=== PATIENT | female | born 1975 | race Caucasian/White ===

== ENCOUNTER 2018-02-07 18:55 | Emergency (ER) | payer BC ==
--- OUTSIDE RECORDS SUMMARY | 2018-02-07 18:57 | XMS REPORT ---
:1975 Author Organization eClinicalWorks Care Team Providers Name Role Phone Jaime Lewis Provider Role Unavailable Allergies, Adverse Reactions, Alerts Substance Reaction Event Type N.K.D.A. Info Not Available Non Drug Allergy Problems Problem Type Condition Code Onset Dates Condition Status Problem Nasal airway obstruction J34.89 Active Problem Chronic tonsillitis J35.01 Active Problem Sinusitis - Chronic J32.8 Active Assessment Hypertrophy of nasal turbinates J34.3 Active Problem Hypertrophy of nasal turbinates J34.3 Active Assessment Sinusitis - Chronic J32.8 Active Medications Medication Code Code Instructions Start End Date Status Dosage System Date Valium [facility] 65293040457 10 MG Orally Sep 16, Active 1 tablet Twice a day 2018 as needed Augmentin [facility] [address]-72 Active not defined Tylenol #3 ND 86224054652 300-30 MG Orally Sep 16, Active 1-2 every 6 hrs as 2018 tablets needed Ibuprofen ND 0 Active not defined Results No Known Results Summary Purpose eClinicalWorks Submission
--- OUTSIDE RECORDS SUMMARY | 2018-02-07 18:57 | XMS REPORT ---
[...] - Chronic J32.8 Active Medications Medication Code System Code Instructions Start End Date Status Dosage Date [facility] 14411329833 0.2 % Ophthalmic Oct 04, Active 1 drop in Twice a day 2018 eye Results No Known Results Summary Purpose eClinicalWorks Submission
--- OUTSIDE RECORDS SUMMARY | 2018-02-07 18:57 | XMS REPORT ---
:1975 Author Organization [employer] Care Team Providers Name Role Phone Jaime Lewis Provider Role Unavailable Allergies No Known Allergies Problems Problem Type Condition Code Onset Dates Condition Status Problem Nasal airway obstruction J34.89 Active Problem Chronic tonsillitis J35.01 Active Problem Sinusitis - Chronic J32.8 Active Problem Hypertrophy of nasal turbinates J34.3 Active Medications Medication Code System Code Instructions Start End Date Status Dosage Date Tylenol #3 [facility] 80459849629 300-30 MG Orally Sep 16, Active 1-2 tablets every 6 hrs as 2018 needed Augmentin [facility] 14872736022 875-125 MG b , Sep 18, Active 1 tablet Orally every 12 2018 2018 hrs Valium ND 12597119754 10 MG Orally Sep 16, Active 1 tablet as Twice a day 2018 needed Results No Known Results Summary Purpose eClinicalWorks Submission
--- OUTSIDE RECORDS SUMMARY | 2018-02-07 18:57 | XMS REPORT ---
:1975 Author Organization e[employer]Works Care Team Providers Name Role Phone Jaime Lewis Provider Role Unavailable Allergies, Adverse Reactions, Alerts Substance Reaction Event Type N.K.D.A. Info Not Available Non Drug Allergy Problems Problem Type Condition Code Onset Dates Condition Status Assessment Hypertrophy of nasal turbinates J34.3 Active Problem Nasal airway obstruction J34.89 Active Problem Chronic tonsillitis J35.01 Active Problem Sinusitis - Chronic J32.8 Active Assessment Nasal airway obstruction J34.89 Active Assessment Chronic tonsillitis J35.01 Active Problem Hypertrophy of nasal turbinates J34.3 Active Assessment Sinusitis - Chronic J32.8 Active Medications Medication Code System Code Instructions Start End Date Status Dosage Date Omnicef NDC 26530963297 300 MG Orally Sep 07, Sep 17, Active 1 capsule every 12 hrs 2017 2017 Ibuprofen NDC 0 Active not defined Results Name Result Date Reference Range Unit Abnormality Flag CT Sinus with [place] Summary Purpose [employer] Submission
--- OUTSIDE RECORDS SUMMARY | 2018-02-07 18:57 | XMS REPORT ---
[...] Instructions Start End Date Status Dosage Date [facility] 66751203316 0.2 % Ophthalmic Oct 04, Active 1 drop in Twice a day 2018 eye Results No Known Results Summary Purpose eClinicalWorks Submission
--- OUTSIDE RECORDS SUMMARY | 2018-02-07 18:57 | XMS REPORT ---
[...] Start End Date Status Dosage System Date Ibuprofen NDC 0 Active not defined Augmentin [facility] [address]-36 Active not defined Pataday [facility] 56241400355 0.2 % Ophthalmic Oct 04, Active 1 drop in Twice a day 2018 eye Results No Known Results Summary Purpose [employer] Submission
--- OUTSIDE RECORDS SUMMARY | 2018-02-07 18:57 | XMS REPORT ---
[...] Assessment Sinusitis - Chronic J32.8 Active Medications No Known Medications Results No Known Results Summary Purpose eClinicalWorks Submission
--- OUTSIDE RECORDS SUMMARY | 2018-02-07 18:57 | XMS REPORT ---
:1975 Author Organization eClinicalWorks Care Team Providers Name Role Phone Jaime Lewis Provider Role Unavailable Allergies No Known Allergies Problems Problem Type Condition Code Onset Dates Condition Status Problem Nasal airway obstruction J34.89 Active Problem Chronic tonsillitis J35.01 Active Problem Sinusitis - Chronic J32.8 Active Problem Hypertrophy of nasal turbinates J34.3 Active Medications No Known Medications Results No Known Results Summary Purpose [employer]ClinicalWorks Submission
--- NOTE | 2018-02-07 20:01 | ER ---
Nurse's Notes [facility] Name: Ximena River Age: 42 yrs Sex: Female : 1975 Arrival Date: 02/07/2018 Time: 18:58 Bed 12 Private MD: Diagnosis: Zoster [herpes zoster];Other herpes zoster eye disease Presentation: 02/07 19:18 Presenting complaint: Patient states: "I am in the process of going through Chemo and I jd3 started to have a rash on my head and right side of my neck. I spoke with my Chemo doctor and they said to come in and be evaluated to make sure I don't have shingles or any other infection that could cause a worse infection while on Chemo.". Transition of care: patient was not received from another setting of care. Onset of symptoms was February 04, 2018. Risk Assessment: Do you want to hurt yourself or someone else? Patient reports no desire to harm self or others. Initial Sepsis Screen: Does the patient meet any 2 criteria? No. Patient's initial sepsis screen is negative. Does the patient have a suspected source of infection? No. Patient's initial sepsis screen is negative. Care prior to arrival: None. 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 - Social history:: Smoking status: Patient uses tobacco products, denies chronic smoking, but will smoke occasionally. - Ebola Screening: : Patient negative for fever greater than or equal to 101.5 degrees Fahrenheit, and additional compatible Ebola Virus Disease symptoms. Screenin:28 Abuse screen: Denies threats or abuse. Nutritional screening: No deficits noted. jd3 Tuberculosis screening: No symptoms or risk factors identified. Fall Risk Ambulatory Aid- None/Bed Rest/Nurse Assist (0 pts). Gait- Normal/Bed Rest/Wheelchair (0 pts) Mental Status- Oriented to own ability (0 pts). Total Strong Fall Scale indicates No Risk (0-24 pts). Assessment: 19:26 General: Appears in no apparent distress. uncomfortable, Behavior is calm, cooperative, jd3 appropriate for age. Pain: Denies pain. Neuro: Level of Consciousness is awake, alert, obeys commands, Oriented to person, place, time, situation, Appropriate for age. Cardiovascular: Heart tones S1 S2 present Capillary refill < 3 seconds Patient's skin is warm and dry. Respiratory: Airway is patent Respiratory effort is even, unlabored, Respiratory pattern is regular, symmetrical, Breath sounds are clear bilaterally. GI: No signs and/or symptoms were reported involving the gastrointestinal system. : No signs and/or symptoms were reported regarding the genitourinary system. EENT: No signs and/or symptoms were reported regarding the EENT system. Derm: Skin is intact, Skin is dry, Skin is normal, Skin temperature is warm Rash noted that is red, raised, on right lateral aspect of neck and back of head pt reports swelling on sight of rash on right side of neck. Musculoskeletal: Circulation, motion, and sensation intact. Range of motion: intact in all extremities. 20:19 Reassessment: Dr Henry in to see pt and discuss discharge instructions. Pt also fc understand that she should be at Dr Núñez's office at 0930 in the morning. Vital Signs: 19:25 BP 110 / 71; Pulse 83; Resp 16 S; Temp 98.7(O); Pulse Ox 98% on R/A; Weight 60 kg (R); jd3 Height 5 ft. 7 in. (170.18 cm) (R); Pain 1/10; 19:25 Body Mass Index 20.72 (60.00 kg, 170.18 cm) jd3 ED Course: 18:58 Patient arrived in ED. mr 19:18 Dudley Bustos, MARITO is Primary Nurse. jd3 19:24 Triage completed. jd3 19:26 Arm band placed on. jd3 19:28 Patient has correct armband on for positive identification. Bed in low position. Call j light in reach. 19:33 Gage Henry MD is Attending Physician. tw4 19:59 Nicholas Núñez MD is Referral Physician. tw4 19:59 Josias Núñez MD is Referral Physician. tw4 20:20 No provider procedures requiring assistance completed. Patient did not have IV access fc during this emergency room visit. Administered Medications: No medications were administered Outcome: 20:00 Discharge ordered by . tw4 20:20 Discharged to home ambulatory. fc 20:20 Condition: good 20:20 Discharge instructions given to patient, Instructed on discharge instructions, follow up and referral plans. no drinking with medication, no driving heavy equipment, medication usage, Demonstrated understanding of instructions, follow-up care, medications, Prescriptions given X 4. 20:20 Patient left the ED. fc Signatures: Ayla Calzada mr CharlinejadMaty, RN RN fc Dudley Bustos RN RN jd3 Gage Henry MD MD tw4 Corrections: (The following items were deleted from the chart) 19:32 19:25 BP 110 / 71; Pulse 83bpm; Resp 16bpm; Spontaneous; Pulse Ox 98% RA; 60 kg jd3 Reported; Height 5 ft. 7 in. Reported; BMI: 20.7; Pain 1/10; jd3
--- NOTE | 2018-02-07 20:01 | EDPHYS ---
Physician Documentation [facility] Name: Ximena River Age: 42 yrs Sex: Female : 1975 Arrival Date: 02/07/2018 Time: 18:58 Bed 12 Private MD: ED Physician Gage Henry HPI: 02/07 19:55 This 42 yrs old Female presents to ER via Ambulatory with complaints of Skin tw4 Sore(s). 19:55 The patient's rash thought to be caused by an unknown cause. The rash is located on the tw4 forehead. The rash can be described as vesicular. Onset: The symptoms/episode began/occurred 4 day(s) ago. Associated signs and symptoms: Pertinent positives: None. Associated signs and symptoms: Pertinent positives: eye redness. Severity of symptoms: At their worst the symptoms were moderate in the emergency department the symptoms are unchanged. The patient has not experienced similar symptoms in the past. The patient has not recently seen a physician. 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 - Social history:: Smoking status: Patient uses tobacco products, denies chronic smoking, but will smoke occasionally. - Ebola Screening: : Patient negative for fever greater than or equal to 101.5 degrees Fahrenheit, and additional compatible Ebola Virus Disease symptoms. ROS: 19:55 Constitutional: Negative for fever, chills, and weight loss. tw4 19:55 Skin: Positive for rash, Negative for abrasions, abscesses, avulsion, diaphoresis, discoloration, ecchymosis, erythema, hematoma. Exam: 19:55 Constitutional: This is a well developed, well nourished patient who is awake, alert, tw4 and in no acute distress. 19:55 Head/face: Noted is rash, of the forehead. Vital Signs: 19:25 BP 110 / 71; Pulse 83; Resp 16 S; Temp 98.7(O); Pulse Ox 98% on R/A; Weight 60 kg (R); jd3 Height 5 ft. 7 in. (170.18 cm) (R); Pain 10; 19:25 Body Mass Index 20.72 (60.00 kg, 170.18 cm) jd3 MDM: 19:46 Patient medically screened. tw4 19:55 Differential diagnosis: impetigo, varicella, allergic reaction. Data reviewed: vital tw4 signs, nurses notes. Counseling: I had a detailed discussion with the patient and/or guardian regarding: the historical points, exam findings, and any diagnostic results supporting the discharge/admit diagnosis. Special discussion: I discussed with the patient/guardian in detail that at this point there is no indication for admission to the hospital. It is understood, however, that if the symptoms persist or worsen the patient needs to return immediately for re-evaluation. Administered Medications: No medications were administered Disposition: 02/07/18 20:00 Discharged to Home. Impression: Zoster [herpes zoster], Other herpes zoster eye disease. - Condition is Stable. - Discharge Instructions: Shingles. - Prescriptions for Bactroban 2 % Topical Ointment - Apply to affected area 1 application by TOPICAL route every 12 hours; 30 gram. Neurontin 300 mg Oral Capsule - take 1 capsule by ORAL route every 8 hours; 30 capsule. Tylenol- Codeine #3 300-30 mg Oral Tablet - take 2 tablet by ORAL route every 6 hours As needed; 30 tablet. Valtrex 1 g Oral Tablet - take 1 tablet by ORAL route every 8 hours for 7 days; 21 tablet. - Medication Reconciliation Form, Thank You Letter, Antibiotic Education, Prescription Opioid Use form. - Follow up: Nicholas Nñúez MD; When: 1 - 2 days; Reason: Re-evaluation by your physician. Follow up: Josias Núñez MD; When: 1 - 2 days; Reason: Recheck today's complaints, Re-evaluation by your physician. - Problem is new. - Symptoms are unchanged. Signatures: Maty Dowell RN RN Dudley Bustos RN RN jd3 Gage Henry MD MD tw4 Corrections: (The following items were deleted from the chart) 20:20 20:00 02/07/2018 20:00 Discharged to Home. Impression: Zoster [herpes zoster]; Other fc herpes zoster eye disease. Condition is Stable. Forms are Medication Reconciliation Form, Thank You Letter, Antibiotic Education, Prescription Opioid Use. Follow up: Nicholas Núñez; When: 1 - 2 days; Reason: Re-evaluation by your physician. Follow up: Josias Núñez; When: 1 - 2 days; Reason: Recheck today's complaints, Re-evaluation by your physician. Problem is new. Symptoms are unchanged. tw4
== END 2018-02-07 20:20 | disposition home or self-care (01) ==
LOC: ER 18:55
DX: B02.39 Other herpes zoster eye disease (principal); B02.9 Zoster without complications; Z72.0 Tobacco use; Z85.3 Personal history of malignant neoplasm of breast
CPT/HCPCS: 99282

== ENCOUNTER 2020-11-05 18:34 | Emergency (ER) | payer BC ==
--- OUTSIDE RECORDS SUMMARY | 2020-11-05 18:36 | XMS REPORT | Continuity of Care Document ---
:1975 Author Organization [facility] t Address [address] [place] [address] Care Team Providers Name Role Phone CHAYA SRIVASTAVA Primary Care Physician Unavailable Cheryl CRUM Attending Clinician Andres Gaytan MD Attending Clinician Anju DONIS P Attending Clinician Olena Srivastava MD Attending Clinician Ly PA Attending Clinician Olena SRIVASTAVA Attending Clinician Unavailable Triston DEVI, T Attending Clinician Unavailable Lab, Fam Pob I Attending Clinician Unavailable Pascual RN, L Attending Clinician Unavailable Payers Payer Name Policy Type Policy Number Effective Date Expiration Date S [place] BLUE CROSS BLUE [id number] 2017 MD Enrique RUIZBCBS PPO 00:00:00 POS OUT OF STATE [id number] -Presen tPPO Problems Condition Condition Condition Status Onset Resolution Last Treating Co mments Source Name Details Category Date Date Treatment Clinician Date Encounter Encounter Disease Active 2018- for for 9 Anderso preprocedu preprocedu 00:00: n ral ral 00 examinatio examinatio n n 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 1-30 Anderso lymphedema lymphedema 00:00: n syndrome syndrome 00 Stiffness Stiffness Disease Active 2017-08 MD of right of right 2-31 Stephen o shoulder shoulder 00:00: n 00 Shoulder Shoulder Disease Active 2017-08 girdle girdle 2-31 Anderso weakness weakness 00:00: n 00 At risk of At risk of Disease Active 2017-08 M D lymphedema lymphedema 2-31 An derso 00:00: n 00 Acquired Acquired Disease Active 2017-08 MD absence of absence of 2-12 An derso right right 00:00: n breast and breast and 00 nipple nipple 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, no n zoster zoster 00 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 00 ally from female female request breast breast for surgery [id number] Estrogen Estrogen Disease Active receptor receptor 4-30 Stephen o positive positive 00:00: n status status 00 (ER+) (ER+) 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 aditya 4-30 Anderso carcinoma carcinoma 00:00: n of breast of breast 00 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 Family History Family Member Diagnosis Comments Start Date Stop Date Source Maternal grandmother Gallbladder disease MD [place] Family member -Breast cancer MD Enrique palomo Family member Ovarian cancer MD Enrique palomo Social History Social Habit Start Date Stop Date Quantity Comments Source Sex Assigned At MD Mitchell on Tobacco use and 2019-11-09 2019-11-09 Never used MD Mitchell on exposure 00:00:00 00:00:00 Alcohol intake 2019-11-09 2019-11-09 Current MD Anderso n 00:00:00 00:00:00 non-drinker of alcohol (finding) Tobacco Comment 2017-12-06 2017-12-06 patient smokes MD Amy knight 00:00:00 00:00:00 around once a month when her friends visit from [place] History of tobacco 2017-08-13 Current smoker MD [place]ogue use 00:00:00 Smoking Status Start Date Stop Date Source Former smoker 2019-11-09 00:00:00 2019-11-09 00:00:00 Bharath son Medications Ordered Filled Start Stop Current Ordering Indication Dosage Frequency Signature Comments Components Source Medication Medication Date Date Medication? Clinician (SIG) Name Name multivitami Yes 1{capsu Take 1 M D n capsule 2-12 le} capsule by Enrique rso 13:58: mouth n 39 daily. tamoxifen Yes Infiltratin TAKE 1 MD (NOLVADEX) 2-08 g duct TABLET Bharath so 20 mg 00:00: carcinoma DAILY n tablet 00 of overlapping sites of right female breast tamoxifen 2020- No Infiltratin TAKE 1 MD (NOLVADEX) 3-17 02-08 g duct TABLET Enrique rso 20 mg 00:00: 00:00 carcinoma DAILY n tablet 00 :00 of overlapping sites of right female breast OLANZapine Yes Nausea 2.5mg Take 1 MD (ZyPREXA) 2-03 tablet Anderso 2.5 mg 00:00: (2.5 mg) n tablet 00 by mouth nightly as needed for anxiety or sleep (nausea). traMADol Yes Infiltratin 50mg Take 1 MD (ULTRAM) 50 9-25 g duct tablet (50 Anderso mg tablet 00:00: carcinoma mg) by n 00 of mouth overlapping every 6 sites of (six) right hours as female needed for breast moderate pain. Edin Jesus Yes Jaime 1 drop in Center 10-04 [facility] for ENT 00:00: 00 olopatadine 2020- No 1[drp] Apply 1 (Edin) 10-04- drop to Stephen o 0.1% 00:00: 00:00 eye as n ophthalmic 00 :00 needed. solution Vital Signs Vital Name Observation Time Observation Value Comments Source Systolic blood pressure 2020-09-20 13:53:39 71 mm[Hg] MD [place] Diastolic blood pressure 2020-09-20 13:53:39 42 mm[Hg] MD [place] Heart rate 2020-09-20 13:53:39 61 /min MD Bharath herman Body temperature 2020-09-20 13:53:39 36.89 Cece MD Capri alvarez Respiratory rate 2020-09-20 13:53:39 18 /min MD Capri alvarez Oxygen saturation in 2020-09-20 13:53:39 99 /min MD [place] Arterial blood by Pulse oximetry Body weight 2020-09-16 15:12:32 63.8 kg MD Bharath herman BMI 2020-09-16 15:12:32 22.08 kg/m2 MD Bharath herman Body height 2020-05-22 17:57:00 170 cm MD Bharath herman Procedures Procedure Date / Time Performed Performing Clinician Sour e CARCINOEMBRYONIC ANTIGEN 2020-09-16 13:42:00 Ekta Rene MD CANCER ANTIGEN 15-3 2020-09-16 13:42:00 Ekta Rene MD COMPLETE BLOOD COUNT W/ 2020-09-16 13:42:00 Ekta Rene MD DIFFERENTIAL COMPREHENSIVE METABOLIC PANEL 2020-09-16 13:42:00 Etka Rene MD VITAMIN D 25 HYDROXY LEVEL 2020-09-16 13:42:00 Ekta Rene Results CBC 2020-09-16 13:42:00 Ekta Rene MD MANUAL DIFFERENTIAL 2020-09-16 13:42:00 Ekta Rene MD GLUCOSE LEVEL 2020-09-16 13:42:00 Ekta Rene MD BLOOD UREA NITROGEN 2020-09-16 13:42:00 Ekta Rene MD ELECTROLYTE PANEL 2020-09-16 13:42:00 Ekta Rene MD SERUM CREATININE 2020-09-16 13:42:00 Ekta Rene MD .GLOMERULAR FILTRATION RATE 2020-09-16 13:42:00 Ekta Rene MD CALCIUM LEVEL TOTAL 2020-09-16 13:42:00 Ekta Rene MD ALBUMIN LEVEL 2020-09-16 13:42:00 Ekta Rene MD ALKALINE PHOSPHATASE 2020-09-16 13:42:00 Ekta Rene MD Enrique rson ALANINE AMINOTRANSFERASE 2020-09-16 13:42:00 Ekta Rene MD ASPARTATE AMINOTRANSFERASE 2020-09-16 13:42:00 Ekta Rene TOTAL PROTEIN 2020-09-16 13:42:00 Ekta Rene MD FRACTIONATED BILIRUBIN 2020-09-16 13:42:00 Ekta Rene MD DEXA BONE MINERAL DENSITY BOTH 2020-05-22 18:25:39 Catia Srivastava MD HIPS AND SPINE COMPLETE BLOOD COUNT W/ 2020-05-22 17:12:00 Chaya Srivastava MD DIFFERENTIAL CANCER ANTIGEN 15-3 2020-05-22 17:12:00 Chaya Srivastava MD And erson CARCINOEMBRYONIC ANTIGEN 2020-05-22 17:12:00 Chaya Srivastava VITAMIN D 25 HYDROXY LEVEL 2020-05-22 17:12:00 Chaya Srivastava MD GLUCOSE LEVEL 2020-05-22 17:12:00 Chaya Srivastava MD Andaramo n BLOOD UREA NITROGEN 2020-05-22 17:12:00 Chaya Srivastava MD And erson ELECTROLYTE PANEL 2020-05-22 17:12:00 Chaya Srivastava MD Bharath son SERUM CREATININE 2020-05-22 17:12:00 Chaya Srivastava MD Stephen on .GLOMERULAR FILTRATION RATE 2020-05-22 17:12:00 Chaya Srivastava MD CALCIUM LEVEL TOTAL 2020-05-22 17:12:00 Chaya Srivastava MD And erson ALBUMIN LEVEL 2020-05-22 17:12:00 Chaya Srivastava MD Andkami n ALKALINE PHOSPHATASE 2020-05-22 17:12:00 Chaya Srivastava MD ALANINE AMINOTRANSFERASE 2020-05-22 17:12:00 Chaya Sriavstava ASPARTATE AMINOTRANSFERASE 2020-05-22 17:12:00 Chaya Srivastava MD TOTAL PROTEIN 2020-05-22 17:12:00 Chaya Srivastava MD FRACTIONATED BILIRUBIN 2020-05-22 17:12:00 Chaya Srivastava MD Results CBC 2020-05-22 17:12:00 Chaya Srivastava MD MANUAL DIFFERENTIAL 2020-05-22 17:12:00 Chaya Srivastava MD And erson COMPREHENSIVE METABOLIC PANEL 2020-05-22 17:12:00 Chaya Srivastava MD COMPLETE BLOOD COUNT W/ 2020-02-13 13:36:00 Cahya Srivastava MD DIFFERENTIAL CANCER ANTIGEN 15-3 2020-02-13 13:36:00 Chaya Srivastava MD And javy CARCINOEMBRYONIC ANTIGEN 2020-02-13 13:36:00 Chaya Srivastava DIHYDROXY VITAMIN D 1 25 LEVEL 2020-02-13 13:36:00 Catia Srivastava MD ESTRADIOL LEVEL 2020-02-13 13:36:00 Chaya Srivastava MD LUTEINIZING HORMONE 2020-02-13 13:36:00 Chaya Srivastava MD And erson FOLLICLE STIMULATING HORMONE 2020-02-13 13:36:00 Chaya Srivastava MD LEVEL Results CBC 2020-02-13 13:36:00 Chaya Srivastava MD MANUAL DIFFERENTIAL 2020-02-13 13:36:00 Chaya Srivastava MD And erskamron CT ABDOMEN W CONTRAST 2019-11-09 16:03:00 Ekta Rene MD And erson POC CREATININE 2019-11-09 14:06:00 Provider, Unknown MD Angie roach Encounters Start End Encounter Admission Attending Care Care Encounter Source Date/Time Date/Time Type Type Clinicians Facility Department ID 2020-04-23 2020-04-23 Outpatient BURAK SRIVASTAVA SHAGGY MDA [id number] 00:00:00 00:00:00 CHAYA roach 2020-04-19 2020-04-19 Outpatient BURAK SRIVASTAVA SHAGGY MDA [id number] 00:00:00 00:00:00 CHAYA roach 2020-04-19 2020-04-19 Outpatient BURAK SRIVASTAVA MDA MDA [id number] 00:00:00 00:00:00 CHAYA roach 2020-04-19 2020-04-19 Outpatient BURAK SRIVASTAVA MDA MDA [id number] 00:00:00 00:00:00 CHAYA roach 2020-04-11 2020-04-11 JOSE GUADALUPE Dominguez [id number] 00:00:00 00:00:00 (Out) Janneth Potts LAM [id number] [facility] [id number] 2020-04-10 2020-04-10 [facility] [id number] 14:02:24 14:22:24 Only Fam Pob I Health [id number] [place] [id number] Professio [id number] nal [address] 2020-02-13 2020-02-13 Outpatient BURAK SRIVASTAVA MDA MDA [id number] 08:35:47 08:45:17 CHAYA roach 2020-02-13 2020-02-13 Outpatient BURAK SRIVASTAVA MDA MDA [id number] 00:00:00 00:00:00 CHAYA roach 2017-11-11 2017-11-11 Outpatient [facility] [place] [id number] Center 10:10:00 10:10:00 [facility] 2017-10-14 2017-10-14 Outpatient [facility] [id number] Center 10:40:00 10:40:00 [facility] 2017-10-04 2017-10-04 Outpatient [facility] [id number] Center 10:40:00 10:40:00 [facility] 2017-09-27 2017-09-27 Outpatient [facility] [id number] Center 10:10:00 10:10:00 [facility] 2017-09-24 2017-09-24 Outpatient [facility] [id number] Center 10:00:00 10:00:00 [facility] 2017-09-16 2017-09-16 Outpatient [facility] [id number] Center 09:26:00 09:26:00 [facility] 2017-09-07 2017-09-07 Outpatient [facility] [id number] [place] 11:06:00 11:06:00 [facility] 2017-09-07 2017-09-07 Outpatient [facility] [place] [id number] [place] 09:40:00 09:40:00 [facility] Results Test Description Test Time Test Comments Results Result Comments Source Vitamin D 25OH 2020-09-16 14:48:13 Test Item Value Reference Range Interpretation Comme nts Vitamin D 25 OH (test code = 38 ng/mL 30-100 Reference Range: Deficiency: 8018) <10 ng/mLInsuff iciency: 10-29 ng/mLSufficienc y: 30-100 ng/mLPotential toxicity: >100 ng/mL MD [id number] 14:28:05 Test Item Value Reference Range Interpretation Comments CEA (test code = 5203) 4.6 ng/mL See_Comment H Refer ence Ranges:Smoker 0.0 - 5.5 Testi ng Performed at [facility] Lab Telegraphic Typewriter Operator Chief [facility], [address], [address], [place], [place] [address] [Automated mess age] The system Grid Net generated this result transmit shawna reference range : <=3.8. The refe rence range was not u sed to interpret th is result as normal/abnormal . Lab Interpretation (test Abnormal code = 71501-3) MD Jackson [id number] 14:28:02 Test Item Value Reference Range Interpretation Comments CA 15-3 (test code 4.9 U/mL See_Comment Results g reater than = 5170) 2400.0 U/mL may not be reliable due to matrix effect with ext ended dilution as it exceeds the brake operator's recommended limit. Caution should be exercised when interpreting clemons ch values and done in con junction with clinical context.Testing Performed at [facility] Lab Ambu [facility] Bld[facility], [address], [address], [place] [address] [Automat ed message] The system Grid Net generated this result tra nsmitted reference range : <=25.0. The reference r anne was not used to int erpret this result as justine l/abnormal. MD HogueFractionated [id number] 14:26:45 Test Item Value Reference Range Interpretation Comments Bili Total (test <0.3 See_Comment Direct and indirect code = 5096) bilirubin will not be reported when T otal bilirubin resul t is <0.3 mg/dLIndocyanin e Green (ICG) may cause false ly elevated bilirubin resul ts. Total and direct bilirubi n must not be measured from s amples containing indo cyanine green. False el evation of total bilirubin can be seen in patients wit h IgG concentrations above 28 g/L.Testing Per formed at [facility] Lab Telegraphic Typewriter Operator Chief [facility], [address], [place] [address] [Automated mess age] The system which ge nerated this result transmit shawna reference range: <=1.2 mg /dL. The reference range was not used to interpret th is result as normal/abnormal . MD HogueGlomerular Filtration [id number] 14:26:44 Test Item Value Reference Range Interpretation Comments eGFR-AA (test code 92 See_Comment Normal eG FR >= 60 mL/min/1.73 = 8062) m2 Note: The eG FR is calculated usin g the CKD-EPI equation. The e GFR declines with age. eGFR <60 mL/min/1.73 m2 is considered as "decreased". This equation should only be used for patients 18 and older. According to th e National Kidney Foundati on's Kidney Disease Outcome Quality Initiative (KDO QI) classification and 2012 Kidney Disease Improving Global Outcomes (KDIGO) Clinical Practi ce Guideline, the stage of CK D should be categorized bas ed on estimated GFR. Stage Description GFR mL/min/1.73 m21 Normal or high GFR >=902 Mildly decrease d GFR 60-893a M ildly to moderately decr eased GFR 45-593b Moderat james to severely decrea sed GFR 30-444 Severely decreased GFR 15-295 Kid arin failure <15 Testing Performed at [facility] Lab Ambulat ory Care [facility], [address], [place], [place] [address] [Automated message] The sy stem which generated this result transmitted ref erence range: >=60 mL/min/1.7 3 sq. m. The reference range was not used to interpret th is result as normal/abnormal . eGFR-WENDY (test code 80 See_Comment Normal e GFR >= 60 mL/min/1.73 = 8063) m2 Note: The eG FR is calculated usin g the CKD-EPI equation. The e GFR declines with age. eGFR <60 mL/min/1.73 m2 is considered as "decreased". This equation should only be used for patients 18 and older. According to th e National Kidney Foundati on's Kidney Disease Outcome Quality Initiative (KDO QI) classification and 2012 Kidney Disease Improving Global Outcomes (KDIGO) Clinical Practi ce Guideline, the stage of CK D should be categorized bas ed on estimated GFR. Stage Description GFR mL/min/1.73 m21 Normal or high GFR >=902 Mildly decrease d GFR 60-893a M ildly to moderately decr eased GFR 45-593b Moderat james to severely decrea sed GFR 30-444 Severely decreased GFR 15-295 Kid arin failure <15 Testing Performed at [facility] Lab Ambulat ory Care [facility], [address], [place], [place] [address] [Automated message] The sy stem which generated this result transmitted ref erence range: >=60 mL/min/1.7 3 sq. m. The reference range was not used to interpret th is result as normal/abnormal . MD HogueTotal [id number] 14:26:43 Test Item Value Reference Range Interpretation Comments Total Protein (test 7.0 g/dL 6.4-8.3 Testing Performed at [facility] code = 7649) Lab Telegraphic Typewriter Operator Chief [facility], [address], [place] [address] MD HogueCalcium [id number] 14:26:42 Test Item Value Reference Range Interpretation Comments Calcium Lvl (test 9.0 mg/dL 8.4-10.2 Testing Pe rformed at code = 5258) [facility] Lab Ambulat ory Care [facility], [address], [place], [place] [address] MD HogueAlkaline [id number] 14:26:41 Test Item Value Reference Range Interpretation Comments Alk Phos (test code = 30 U/L 35-104 L Testin g Performed at 4768) [facility] Lab Ambulat ory Care [facility], [address], [place] [address] Lab Interpretation (test Abnormal code = 42873-5) MD HogueAlbumin [id number] 14:26:40 Test Item Value Reference Range Interpretation Comments Albumin Lvl (test code 4.3 See_Comment Testi ng Performed at [facility] = 4763) Lab Telegraphic Typewriter Operator Chief [facility], [address], [place] [address] [Automated mess age] The system which ge nerated this result tra nsmitted reference range : 3.5 - 5.2 gm/dL. The refe rence range was not used to interpret this result as normal/abnormal . MD HogueAspartate [id number] 14:26:39 Test Item Value Reference Range Interpretation Comments AST (test code = 18 U/L See_Comment Testing Per formed at [facility] 4731) Lab Telegraphic Typewriter Operator Chief [facility], [address], [place] [address] [Automated mess age] The system which ge nerated this result transmit shawna reference range : <=32. The reference range was not used to interpr et this result as justine l/abnormal. MD [id number] 14:26:38 Test Item Value Reference Range Interpretation Comments ALT (test code = 13 U/L See_Comment Testing Per formed at [facility] 4705) Lab Telegraphic Typewriter Operator Chief [facility], [address], [place] [address] [Automated mess age] The system which ge nerated this result transmit shawna reference range : <=33. The reference range was not used to interpr et this result as justine l/abnormal. MD HogueElectrolyte [id number] 14:26:37 Test Item Value Reference Range Interpretation Comments Sodium Lvl (test code = 143 See_Comment Test ing Performed at 7326) [facility] Lab Ambulat ory Care [facility], [address], [place] [address] [Automate d message] The sy stem which generated this result transmit shawna reference range : 136 - 145 mEq/L. Th e reference range was not used to int erpret this result as normal/abnormal . Potassium Lvl (test code 3.9 See_Comment Leisa varshag Performed at = 6859) [facility] Lab Ambulat [facility], [address], [place] [address] [Automate d message] The sy stem which generated this result transmit shawna reference range : 3.5 - 5.1 mEq/L. Th e reference range was not used to int erpret this result as normal/abnormal . Chloride (test code = 109 See_Comment H Testin g Performed at 5279) [facility], [address], [place] [address] [Automate d message] The sy stem which generated this result transmit shawna reference range : 98 - 107 mEq/L. The reference range was not used to int erpret this result as normal/abnormal . CO2 (test code = 5227) 27 See_Comment Testi ng Performed at [facility] Lab [facility], [address] [facility] [facility], [place] [address] [Automate d message] The sy stem which generated this result transmit shawna reference range : 22 - 29 mEq/L. The reference range was not used to int erpret this result as normal/abnormal . Anion Gap (test code = 7 See_Comment Testi ng Performed at 9325) [facility] Lab Ambulat [facility], [address], [place] [address] [Automate d message] The sy stem which generated this result transmit shawna reference range : 4 - 14 mEq/L. The reference range was not used to int erpret this result as normal/abnormal . Lab Interpretation (test Abnormal code = 12598-2) MD Hogue.Serum [id number] 14:26:36 Test Item Value Reference Range Interpretation Comments Creatinine (test code 0.88 mg/dL 0.51-0.95 Testin g Performed at = 5366) [facility] Lab Ambulat [facility], [address], [place] [address] MD [id number] 14:26:35 Test Item Value Reference Range Interpretation Comments BUN (test code = 18 mg/dL 6-23 Testing Per formed at [facility] 5055) Lab Telegraphic Typewriter Operator Chief [facility], [address], [address], [place] [address] MD HogueGlucose [id number] 14:26:34 Test Item Value Reference Range Interpretation Comments Glucose Level (test code 100 mg/dL 70-99 H Eff ective 03/04/16, = 5699) the glucose reference inter vals have been updat ed based on Americ an Diabetes Associ ation guidelines (Standards of Medical Care in Diabetes 2016. Diabetes Care 2 016; 39: S13-S22).Fa sting blood glucose:Normal: 70 99 mg/dLImpaire d fasting glucose (increased risk for diabetes or pre-diabetes): 100 125 mg/dLDiabet es mellitus: >/=1 26 mg/dL Random bl ood glucose:Normal: 70 199 mg/dLNote: Random glucose >100 mg/dL is associ ated with increased risk for diabetes Te sting Performed at [facility] Lab Telegraphic Typewriter Operator Chief [facility], [address] [place] [address] Blvd, [address], [facility] [place] [address] Lab Interpretation (test Abnormal code = 80545-3) MD [id number] 13:53:29 Test Item Value Reference Range Interpretation Comments Neutrophil % (test code 53.5 % 42-66 As p art of = 6491) Differential performed at [facility] Lab Telegraphic Typewriter Operator Chief Bldg, [address] [place], [place] [address], [address], [facility] [place] [address] Lymphocyte % (test code 34.9 % 24-44 = 6194) Monocyte % (test code = 8.1 % 2-7 H 6422) Eosinophil % (test code 2.6 % 1-4 = 5520) Basophil % (test code = 0.7 % 0-1 5068) IGRE % (test code = 0.2 % 0-0.4 IGRE % c ount includes 5958) Metamyelocytes, Myelocytes, and Promyelocytes. As part of Differe ntial performed at [facility] Telegraphic Typewriter Operator Chief Bldg, [address], [address], [place] [address] Neutrophil Abs (test 2.46 K/uL 1.7-7.3 code = 6492) Lymphocyte Abs (test 1.60 K/uL 1-4.8 code = 6195) Monocyte Abs (test code 0.37 K/uL 0.08-0.7 = 6423) Eosinophil Abs (test 0.12 K/uL 0.04-0.4 code = 5521) Basophil Abs (test code 0.03 K/uL 0-0.1 = 5069) IG Abs (test code = 0.01 K/uL 0-0.04 5954) Lab Interpretation Abnormal (test code = 60571-5) MD Hogue.[id number] 13:53:25 Test Item Value Reference Range Interpretation Comments WBC (test code = 4.6 K/uL 4-11 8034) RBC (test code = 4.23 See_Comment [Automated message] The 6932) system which ge nerated this result tra nsmitted reference range : 4.00 - 5.50 M/uL. The reference range was not u sed to interpret this result as normal/abnormal . Hgb (test code = 12.6 See_Comment As part of CBC or as an 5898) individual maren loaiza testing perform ed at [facility] Lab Telegraphic Typewriter Operator Chief [facility], [address] [address], [address], [place] [address] [Automated mess age] The system which ge nerated this result tra nsmitted reference range : 12.0 - 16.0 gm/dL. The reference range was not u sed to interpret this result as normal/abnormal . Hct (test code = 38.8 % 37-47 As part of CBC or as an 5860) individual maren loaiza testing perform ed at [facility] [employer] [facility], [address], [address], [place] [address] MCV (test code = 92 fL 82-98 6222) MCH (test code = 29.8 pg 27-31 6220) MCHC (test code = 32.5 See_Comment [Automate d message] The 6221) system which ge nerated this result tra nsmitted reference range : 31.0 - 36.0 gm/dL. The reference range was not u sed to interpret this result as normal/abnormal . RDW-SD (test code = 41.2 fL 35.1-46.3 6972) RDW-CV (test code = 12.2 % 12-15.5 6971) Platelet count (test 188 K/uL 140-440 As part of CBC or as an code = 6832) individual maren loaiza testing perform ed at [facility], [address], [address], [place] [address] MPV (test code = 9.5 fL 4-10.4 6282) INRBC (test code = 0.0 % See_Comment The INRBC (instrument 5974) NRBC) value ref lects the enumerationof n ucleated red blood cells contained in a 200uL samp leof whole blood analyzed by the instrument. Thi s value maydiffer from the NRBC value reported in a manual differen tial,which is based on a 1 00 cell differential. A s part of CBC testing per formed at [facility], [facility] [address] [Automat ed message] The sy stem which generated this result transmitted ref erence range: <=0.0. T he reference range was not used to interpr et this result as normal/abnormal . MD HogueNM Bone Mineral Density Both Hips and [id number] 19:00:491. Normal bone mineral density.2. Statistically significant interval increase in bone mineral density at the left total hip, left femoral neck, and right femoral neck. I personally reviewed these image(s) along with the resident's/fellow's interpretations, certify that if a procedure was performed Iwas physically present, and agree with the final report.Interface, Radiology Results In - 05/22/2020 2:02 PM CDTExamination: Bone Mineral Density (DXA), 05/22/2020Clinical History: 44-year-old woman with breast cancer.Indication: Assessment of bone mineral density.Comparison: Bone mineral density exam 01/31/2019Technique: Bone mineral density was obtained using Hologic dual-energy X-ray absorptiometry.Findings: The findings are provided in the below table(s).FULL RESULT:Bone Density: Region Exam Date BMD T- Z- g/cm2 Score Score AP Spine (L1-L4) 05/22/2020 0.998 -0.4 0.0 Femoral Neck (Left) 05/22/2020 0.823 -0.2 0.2 Total Hip (Left) 05/22/2020 0.868 -0.6 -0.3 Femoral Neck (Right) 05/22/2020 0.892 0.4 0.8 Total Hip (Right) 05/22/2020 0.902 -0.3 0.0 ----- For postmenopausal women and men age 50 and over, the World Health Organization criteria for BMD interpretation classify patients as: Normal (T-score at or above -1.0), Osteopenia (T-score between -1.0 and -2.5), or Osteoporosis (T-score at or below -2.5). Previous Exams: --Region Exam Age BMD T-score BMD Change vs Date g/cm2 Baseline Previous -AP Spine (L1-L4) 05/22/2020 44 0.998 -0.4 0.2% 0.2% 01/31/2019 43 0.995 -0.5 Total Hip(Left) 05/22/2020 44 0.868 -0.6 4.6%* 4.6%* 01/31/2019 43 0.829 -0.9 Femoral Neck(Left) 05/22/2020 44 0.823 -0.2 6.0%* 6.0%* 01/31/2019 43 0.776 -0.7 Total Hip(Right) 05/22/2020 44 0.902 - 0.3 3.5% 3.5% 01/31/2019 43 0.872 -0.6 Femoral Neck(Right) 05/22/2020 44 0.892 0.4 12.6%* 12.6%* 01/31/2019 43 0.793 -0.5 *Denotes significance at 95% confidence level, site specific LSC for AP Spine = 0.029 g/cm2, site specific LSC for Total Hip = 0.033 g/cm2, site specific LSC for Femoral Neck = 0.045 g/cm2, LSC for 1/3 Forearm = 0.023g/cm2 IMPRESSION:1. Normal bone mineral density.2. Statistically significant interval increase in b one mineral density at the left total hip, left femoral neck, and right femoral neck.I personally reviewed these image(s) along with the resident's/fellow's interpretations, certify that if a procedurewas performed I was physically present, and agree with the final report.MD HogueCT Abdomen with Contrast 2019-11-09 16:27:[address] correlate for abdominal pain is identified. 2. No CT evidence of metastatic disease in the abdomen. Interface, Radiology Results In - 11/09/2019 11:29 AM CDTFULL RESULT:Examination: CT ABDOMEN W CONTRAST, 11/09/2019 11:03 AMClinical History: Infiltrating duct carcinoma of overlapping sites of right female breastInfiltrating duct carcinoma of right female breast, not otherwise specifiedIndication: stomach painsComparison: 12/09/2017Technique: CT of the abdomen was performed with intravenous contrast.Findings:Motion artifact degrades the images.Bilateral breast implants are partially imaged. T iny subcentimeter left lower lobe lung nodule is stable in the partially imaged portion. Linear changes at the left lung base could be atelectasis but can be correlated clinically for infection or inflammation.Subcentimeter hepatic hypodensity is stable and possibly cysts. There is no biliary ductal dilatation. Gallbladder is present. Spleen is not enlarged. Spleen, adrenals and kidneys show no focallesions. Punctate subcentimeter hypodense areas in the pancreatic tail are stable and possibly volume averaging with fat. They can be followed to exclude cystic lesions.The stomach is underdistended. There is no abdominal lymphadenopathy.No dilated bowel is identified in the abdomenSome minimal degenerative bony changes are noted. Tiny sclerotic bony areas are stable and nonspecific.IMPRESSION:1. No CT correlate for abdominal pain is identified.2. No CT evidence of metastatic disease in the abdomen.[facility] Creatinine 2019-11-09 14:20:31 Test Item Value Reference Range Interpretation Comments POC Crea (test 0.8 mg/dL 0.6-1.3 Medications, especially code = 19637-1) hydroxyurea or supplements, such as ascorba te, can interfere with test results causing a false ly and significantlyhi gher result than expected. If a problem is suspected wi th a patient's result, a sampl e should be sent to the lab oratory for confirmatory te sting. POC eGFR-AA 104 See_Comment Normal eGFR >= 60 mL/min/1.73 (test code = m2 The eGFR is calculated 76627-0) using the CKD-E PI equation. The eGFR declin es with age. eGFR <60 mL/min /1.73 m2 is considered as " decreased" This equation s hould only be used for patien ts 18 and older. Farhat g to the National Kidney Foundation's Kidney Disease Outcome Quality Initiat aditya (KDOQI) classification and 2012 Kidney Disease Improving Global Outcomes (KDIGO) Clinical Practi ce Guideline, the stage of CK D should be categorized bas ed on estimated GFR. Stage Description GFR mL/min/1.73 m21 Kidney willian ge with normal or high GFR >=902 Kidney damage with mil d decrease in GFR 60-893a Mild to moderate decrea se in GFR 45-593b Moderat e to severe decrease in GFR 30-444 Severe decrease in GFR 15-295 Kidney f ailure <15 (or dialysis) [Automated message] The sy stem which generated this result transmitted ref erence range: >=60 mL/min/1.7 3 m2. The reference range was not used to interpret th is result as normal/abnormal . POC eGFR-WENDY 90 See_Comment Normal eGFR >= 60 mL/min/1.73 (test code = m2 The eGFR is calculated 32649-7) using the CKD-E PI equation. The eGFR declin es with age. eGFR <60 mL/min /1.73 m2 is considered as " decreased" This equation s hould only be used for patien ts 18 and older. Benignoin g to the National Kidney Foundation's Kidney Disease Outcome Quality Initiat aditya (KDOQI) classification and 2012 Kidney Disease Improving Global Outcomes (KDIGO) Clinical Practi ce Guideline, the stage of CK D should be categorized bas ed on estimated GFR. Stage Description GFR mL/min/1.73 m21 Kidney willian ge with normal or high GFR >=902 Kidney damage with mil d decrease in GFR 60-893a Mild to moderate decrea se in GFR 45-593b Moderat e to severe decrease in GFR 30-444 Severe decrease in GFR 15-295 Kidney f ailure <15 (or dialysis) [Automated message] The sy stem which generated this result transmitted ref erence range: >=60 mL/min/1.7 3 m2. The reference range was not used to interpret th is result as normal/abnormal . POC Clean Dev Yes (test code = 6672) MD Hogue
[2020-11-05] MEDS ORDERED: LIDOCAINE 1% MPF 30 ML VIAL ONE (21:21)
[2020-11-05] MEDS ORDERED: LIDOCAINE 1% W/EPI 1:100,000 MDV 20 ML VIAL ONE (21:21)
--- NOTE | 2020-11-05 22:15 | ER ---
Nurse's Notes [facility] Name: Ximena River Age: 45 yrs Sex: Female : 1975 Arrival Date: 11/05/2020 Time: 18:40 Bed 7 Private MD: Diagnosis: Nondisplaced transverse fracture of shaft of left radius-With impaction Presentation: 11/05 19:03 Chief complaint: Patient states: Fall from hover board at 1830. L wrist pain. No head ll1 injury or LOC. Coronavirus screen: Client denies travel out of the [place] in the last 14 days. At this time, the client does not indicate any symptoms associated with coronavirus-19. Ebola Screen: Patient denies travel to an Ebola-affected area in the 21 days before illness onset. Initial Sepsis Screen: Does the patient meet any 2 criteria? No. Patient's initial sepsis screen is negative. Does the patient have a suspected source of infection? Yes: Bone or joint infection. Risk Assessment: Do you want to hurt yourself or someone else? Patient reports no desire to harm self or others. Onset of symptoms was November 05, 2020. 19:03 Method Of Arrival: Ambulatory ll1 19:03 Acuity: JENNIFER 4 ll1 Historical: - Allergies: 19:05 Zofran; ll1 19:05 Phenergan; ll1 - PMHx: 19:05 breast cancer with Chemo; ll1 - PSHx: 19:05 cyst removal; partial thyroidectomy; Mastectomy; ll1 - Immunization history:: Flu vaccine is not up to date. - Social history:: Smoking status: Patient denies any tobacco usage or history of. - Family history:: not pertinent. - Hospitalizations: : No recent hospitalization is reported. Screenin:19 Abuse screen: Denies threats or abuse. Nutritional screening: No deficits noted. ea Tuberculosis screening: No symptoms or risk factors identified. Fall Risk None identified. Assessment: 20:55 General: Appears in no apparent distress. comfortable, well groomed, well developed, sg well nourished, Behavior is calm, cooperative, appropriate for age. Pain: Complains of pain in left arm Quality of pain is described as aching. Neuro: Level of Consciousness is awake, alert, obeys commands, Oriented to person, place, time, situation, Speech is normal. Cardiovascular: Patient's skin is warm and dry. Chest pain is denied. Respiratory: Airway is patent Respiratory pattern is regular, symmetrical. GI: No signs and/or symptoms were reported involving the gastrointestinal system. : No signs and/or symptoms were reported regarding the genitourinary system. EENT: No signs and/or symptoms were reported regarding the EENT system. Derm: Skin is pink, warm \T\ dry. Musculoskeletal: Circulation, motion, and sensation intact. Range of motion: intact in all extremities, Swelling present in left wrist. 20:58 Reassessment: at bedside at this time. sg 21:10 Reassessment: pt ambulatory to ED restroom at this time. sg 21:32 Reassessment: at bedside for pain block at this time. sg 22:04 Reassessment: Patient is alert/active/playful, equal unlabored respirations, skin sg warm/dry/pink. A finger trap has been applied to the 2nd and 3rd digits and a 5 pound weight has been suspended from the pt bicep as ordered by . pt reports feels better with weight applied. pt to be splinted after approx 15 mins. Vital Signs: 19:03 BP 129 / 79; Pulse 66; Resp 17; Temp 98.5; Pulse Ox 99% ; Weight 58.97 kg; Height 5 ft. ll1 7 in. (170.18 cm); Pain 8/10; 19:03 Body Mass Index 20.36 (58.97 kg, 170.18 cm) ll1 ED Course: 18:40 Patient arrived in ED. mr 19:04 Triage completed. ll1 19:05 Arm band placed on. ll1 20:17 Bib Kilpatrick MD is Attending Physician. rn 20:48 XRAY Wrist LEFT 3 view In Process Unspecified. EDMS 20:58 Morgan Ritter, MARITO is Primary Nurse. sg 21:19 Patient has correct armband on for positive identification. Bed in low position. Call ea light in reach. Side rails up X2. 22:15 Hammad Keith MD is Referral Physician. rn 22:38 No provider procedures requiring assistance completed. Patient did not have IV access sg during this emergency room visit. Avila wrap to left elbow and left wrist Orthoglass splint: Sugar tong splint applied on left arm. Sling applied to left arm. Administered Medications: No medications were administered Outcome: 22:15 Discharge ordered by . rn 22:38 Discharged to home ambulatory. sg 22:38 Condition: good 22:38 Discharge instructions given to patient, Instructed on discharge instructions, follow up and referral plans. Demonstrated understanding of instructions, follow-up care, splint care. 22:41 Patient left the ED. sg Signatures: Dispatcher [employer] EDMS Morgan Ritter RN RN marina HayesaEvette Roman, MD MD rn Antunez, Elena, RN RN ea Lewis, Lynsay, RN RN ll1 Corrections: (The following items were deleted from the chart) 23:05 21:32 Reassessment: at bedside for block at this time sg sg
--- NOTE | 2020-11-05 22:16 | EDPHYS ---
Physician Documentation [facility] Name: Ximena River Age: 45 yrs Sex: Female : 1975 Arrival Date: 11/05/2020 Time: 18:40 Bed 7 Private MD: ED Physician Bib Kilpatrick HPI: 11/05 20:30 This 45 yrs old Female presents to ER via Ambulatory with complaints of Arm rn Injury, Fall Injury. 20:30 The patient or guardian complains of decreased range of motion, injury, pain. The rn complaints affect the left wrist. Onset: The symptoms/episode began/occurred just prior to arrival. Modifying factors: The symptoms are alleviated by remaining still, the symptoms are aggravated by movement. Associated signs and symptoms: Pertinent positives: decreased range of motion, swelling, Pertinent negatives: erythema, weakness. Severity of symptoms: At their worst the symptoms were moderate, in the emergency department the symptoms have improved. The patient has not experienced similar symptoms in the past. Reports fall off hoverboard, fell backward onto left wrist, + swelling and painful ROM, heard a crack. No other injuries. Improved with ice and holding still. . Historical: - Allergies: 19:05 Zofran; ll1 19:05 Phenergan; ll1 - PMHx: 19:05 breast cancer with Chemo; ll1 - PSHx: 19:05 cyst removal; partial thyroidectomy; Mastectomy; ll1 - Immunization history:: Flu vaccine is not up to date. - Social history:: Smoking status: Patient denies any tobacco usage or history of. - Family history:: not pertinent. - Hospitalizations: : No recent hospitalization is reported. ROS: 20:30 Constitutional: Negative for fever, chills, and weight loss, Neck: Negative for injury, rn pain, and swelling, Back: Negative for injury and pain, MS/Extremity: + injury and pain to left wrist. Neuro: Negative for headache, weakness, numbness, tingling, and seizure. Exam: 20:30 Constitutional: This is a well developed, well nourished patient who is awake, alert, rn and in no acute distress. MS/ Extremity: Pulses equal, no cyanosis. Neurovascular intact. + tenderness distal radius with mild swelling, no cyanosis, strong pulses with normal cap refill. No laceratio nor open wounds. Vital Signs: 19:03 BP 129 / 79; Pulse 66; Resp 17; Temp 98.5; Pulse Ox 99% ; Weight 58.97 kg; Height 5 ft. ll1 7 in. (170.18 cm); Pain 8/10; 19:03 Body Mass Index 20.36 (58.97 kg, 170.18 cm) ll1 MDM: 20:17 Patient medically screened. rn 22:13 Differential diagnosis: closed fracture. Data reviewed: vital signs, nurses notes, rn radiologic studies, plain films, and as a result, I will discharge patient. Test interpretation: by ED physician or midlevel provider: plain radiologic studies, + left wrist xray shows comminuted, impacted distal radius fracture. Counseling: I had a detailed discussion with the patient and/or guardian regarding: the historical points, exam findings, and any diagnostic results supporting the discharge/admit diagnosis, radiology results, the need for outpatient follow up, to return to the emergency department if symptoms worsen or persist or if there are any questions or concerns that arise at home. Response to treatment: the patient's symptoms have markedly improved after treatment, and as a result, I will discharge patient. Special discussion: I discussed with the patient/guardian in detail that at this point there is no indication for admission to the hospital. It is understood, however, that if the symptoms persist or worsen the patient needs to return immediately for re-evaluation. Based on the history and exam findings, there is no indication for further emergent testing or inpatient evaluation. I discussed with the patient/guardian the need to see the orthopedic surgeon for further evaluation of the symptoms. ED course: Pt with impacted distal radius fracture, improved with traction, splinted, will dc home with ortho f/u. Declines pain medication here. . 11/05 20:28 Order name: XRAY Wrist LEFT 3 view rn 11/05 22:15 Order name: Sugar Tong Forearm Splint: Left; Complete Time: 22:37 sg 11/05 22:37 Order name: Sling; Complete Time: 22:37 sg Administered Medications: No medications were administered Disposition: 11/05/20 22:15 Discharged to Home. Impression: Nondisplaced transverse fracture of shaft of left radius - With impaction. - Condition is Stable. - Discharge Instructions: Wrist Fracture Treated With Immobilization. - Medication Reconciliation Form, Thank You Letter, Antibiotic Education, Prescription Opioid Use form. - Follow up: Hammad Keith MD; When: 5 - 6 days; Reason: Recheck today's complaints, Re-evaluation by your physician. - Problem is new. - Symptoms have improved. Signatures: Dispatcher [employer] EDMS Morgan Ritter RN RN sg Bib Kilpatrick MD MD rn Lewis, Lynsay, RN RN ll1 Corrections: (The following items were deleted from the chart) 20:32 20:30 Constitutional: This is a well developed, well nourished patient who is awake, rn alert, and in no acute distress. MS/ Extremity: Pulses equal, no cyanosis. Neurovascular intact. + tenderness distal radius with mild swelling, no cyanosis, strong pulses with normal cap refill. rn 22:41 22:15 11/05/2020 22:15 Discharged to Home. Impression: Nondisplaced transverse fracture sg of shaft of left radius - With impaction. Condition is Stable. Forms are Medication Reconciliation Form, Thank You Letter, Antibiotic Education, Prescription Opioid Use. Follow up: Dr. Hammad Keith; When: 5 - 6 days; Reason: Recheck today's complaints, Re-evaluation by your physician. Problem is new. Symptoms have improved. rn
[2020-11-05 22:46] VITALS: BP 129/79; TEMP 98.5; O2SAT 99
--- NOTE | 2020-11-06 09:21 | RAD REPORT ---
EXAM DESCRIPTION: RAD - Wrist Left 3 View - 11/05/2020 8:49 pm CLINICAL HISTORY: fall, swelling;Pain Pain COMPARISON: No comparisons FINDINGS: Mildly impacted fracture of the distal radial metaphysis is seen. Mild surrounding soft ti ssue swelling. No dislocation evident.
== END 2020-11-05 22:41 | disposition home or self-care (01) ==
LOC: ER 18:34
PROC: 2W3DX1Z Immobilization of Left Lower Arm using Splint (ICD-10-PCS; principal; 2020-11-05)
DX: S52.325A Nondisplaced transverse fracture of shaft of left radius, initial encounter for closed fracture (principal); V00.848A Other accident with standing micro-mobility pedestrian conveyance, initial encounter; Y93.89 Activity, other specified; Y92.9 Unspecified place or not applicable; Z85.3 Personal history of malignant neoplasm of breast; Z88.8 Allergy status to other drugs, medicaments and biological substances
CPT/HCPCS: 99283